=== PATIENT | female | born 1995 | race African-American/Black ===

== ENCOUNTER 2023-03-20 12:09 | Emergency (ER) | payer OTHER, SELFPAY ==
[2023-03-20 12:12] VITALS: BP 123/79; PULSE 87; RESP 16; O2SAT 100
--- NOTE | 2023-03-20 12:28 | PC.NURSE ---
States her throat has been sore since Thursday. States the soreness has radiated up her tongue. States she has generalized body aches. Took a home COVID test and was negative. States having difficulty eating and drinking but denies any nausea or vomiting. Pt's throat is red and inflamed. Denies a cough. States she has a congested nose. States she has also been dealing migraine across the front of her head. States she has been taking ibuprofen for the pain but not having any relief.
[2023-03-20] MEDS: SODIUM CHLORIDE 0.9% IV 1,000 ML 999 ML IV CONT (13:03)
[2023-03-20] MEDS: KETOROLAC 15 MG/ML VIAL (*BKC) IV PUSH (13:05)
[2023-03-20] MEDS: diphenhydrAMINE HCl INJ 50 MG/ML VIAL 25 MG IV PUSH (13:07)
[2023-03-20] MEDS: SUMAtriptan SUCCINATE 6 MG/0.5 ML VIAL SUB-Q (13:07)
--- NOTE | 2023-03-20 13:12 | ED.HA ---
HPI - Headache General Chief Complaint: Headache Stated Complaint: sore throat Time Seen by Provider: 03/20/23 12:26 History of Present Illness HPI Narrative: this 27-year-old female patient with past medical history of migraine headaches presents to the emergency room with complaints of having 2 days of a persistent left-sided headache without aura as well as a sore throat. She denies any fevers however reports dysphagia due to pain. She has not had any known ill contacts. She has taken her typical icpl-cac-casirjn ibuprofen without any relief of symptoms. She notes that she has photophobia and phonophobia. She denies any chest pain, dyspnea, nausea, vomiting, diarrhea. Related Data Allergies Allergy/AdvReac Type Severity Reaction Status Date / Time No Known Allergies Allergy Verified 03/20/23 12:26 Review of Systems Review of Systems: Twelve point review of systems was performed and is otherwise negative except as noted in HPI. All systems reviewed & are unremarkable except as noted in HPI and below Exam Const: General: healthy appearing, no acute distress and alert Nutritional Appearance: obese Orientation/consciousness: patient oriented x3 Limitations: no limitations HENMT: Head: normal to inspection Ears: external ears normal Face/Nose/Sinus: Normal external nose present Face and sinus: normal facial exam Throat: posterior oropharynx abnormal ( bilateral tonsils are 3+ with mild erythema. no exudate) and uvula midline Eyes: Conjunctivae: conjunctivae normal Neck: Neck: normal visual inspection and no lymphadenopathy Chest: Chest palpation & inspection: normal inspection of the chest Resp: Effort & Inspection: normal respiratory effort Auscultation: clear to auscultation bilaterally Cardio: Rate: regular rate Rhythm: regular rhythm Heart sounds: no murmurs GI: Inspection: non-distended GI Palp: Yes Soft to palpation, No Tenderness to palpation present (GI) and No Guarding due to palpation present (GI) Auscultation: normal bowel sounds Back/Spine/Pelvis: Back: no CVA tenderness Skin: General skin exam: normal color Rashes: no rashes Wounds: no wounds Neuro: General: patient oriented x3, moves all extremities, no meningeal signs, no focal motor deficits and CN's II-XI intact bilaterally Speech: normal speech Gait exam (Neuro): Normal gait present Extrem: General: normal to inspection, no clubbing, cyanosis or edema and no pedal edema Psych: Mental Status: mental status grossly normal Affect: normal affect Course Course Emergency Course: Differential diagnosis: migraine headache, strep pharyngitis, URI VSS labs: Positive strep pharyngitis patient received symptomatic treatment with medications for headache and sore throat. She is being discharged home at this time with antibiotics. Vital Signs Vital signs: Vital Signs Pulse Rate 87 03/20/23 12:12 Respiratory Rate 16 03/20/23 12:12 Blood Pressure 123/79 03/20/23 12:12 Pulse Oximetry 100 03/20/23 12:12 Oxygen Delivery Room Air 03/20/23 12:12 Pulse Rate 87 03/20/23 12:12 Respiratory Rate 16 03/20/23 12:12 Blood Pressure 123/79 03/20/23 12:12 Pulse Oximetry 100 03/20/23 12:12 Oxygen Delivery Room Air 03/20/23 12:12 MDM - Headache MDM Narrative Medical decision making narrative: See hospital course Differential Diagnosis Differential diagnosis: Likely migraine, tension headache, headache, sinusitis and other (Strep) Lab Data Labs: Lab Results 03/20/23 Range/Units 12:56 Group A Strep (PCR) Detected A (Negative) Discharge Plan Discharge Clinical Impression: Acute streptococcal pharyngitis Headache Qualifiers: Headache type: unspecified Headache chronicity pattern: acute headache Intractability: not intractable Qualified Code(s): R51.9 - Headache, unspecified Patient Disposition: Home, Self-Care Condition: Stable Instructions: Antibiotic Form
[2023-03-20 13:23] LABS: Strep Group A RT-PCR DETECTED (Negative)
[2023-03-20] MEDS: ACETAMINOPHEN 500 MG TABLET 1000 MG PO (13:35)
[2023-03-20 15:00] VITALS: BP 124/69; PULSE 75; RESP 16; O2SAT 98
== END 2023-03-20 15:05 | disposition home or self-care (01) ==
PROVIDERS: Emergency Provider Nurse Practitioner Adult Health
DX: J02.0 Streptococcal pharyngitis (principal); R51.9 Headache, unspecified
CPT/HCPCS: 87651; 96361; 96372; 96374; 96375; 99284; A9270; J1200; J1885; J3030; J7030